=== PATIENT | female | born 1955 | race Caucasian/White ===

== ENCOUNTER → 2025-05-13 14:12 | Outpatient (CLI) | payer OTHER, MEDICARE, SELFPAY ==
--- NOTE | 2025-05-13 14:16 | DI.RAD.S_ITS ---
PROCEDURE: XR SHOULDER LT MIN 2V INDICATIONS: Rule out fracture, oa TECHNIQUE: 3 views of the shoulder were acquired. COMPARISON: None. FINDINGS: Bones: No fractures or dislocations. No suspicious bony lesions. Visualized ribs appear intact. Soft tissues: No suspicious soft tissue calcifications. IMPRESSION: No acute bony abnormality. Dictated by: Elmer Davenport M.D. on 05/13/2025 at 15:32 Approved by: Elmer Davenport M.D. on 05/13/2025 at 15:33
== END ==
PROVIDERS: Referring Provider Chiropractor; Visit Provider Chiropractor
DX: S43.402A Unspecified sprain of left shoulder joint, initial encounter (principal)
CPT/HCPCS: 73030